=== PATIENT | male | born 1965 | race Caucasian/White ===

== ENCOUNTER 2017-07-22 16:18 | Outpatient (CLI) | payer BC ==
--- NOTE | 2017-07-22 17:01 | Diagnostic Imaging Report ---
Indication: Chest pain Technique: XRAY Chest 2v Comparison: 06/10/2015 Findings: Heart size within normal limits and stable compared to the prior exam. Mediastinal contours are sharp. There is a stable 5 mm calcified nodule in the right upper lung. There is no focal airspace consolidation, pleural effusion or pneumothorax. No acute osseous abnormality is identified. Impression: No radiographic evidence of acute cardiac pulmonary disease.
== END 2017-07-22 18:18 | disposition home or self-care (01) ==
LOC: RAD 16:18
DX: R07.9 Chest pain, unspecified (principal); R91.1 Solitary pulmonary nodule
CPT/HCPCS: 71046